=== PATIENT | male | born 1980 | race Caucasian/White ===

== ENCOUNTER 2019-10-09 21:08 | Emergency (ER) | payer MEDICAID ==
[~2019-10-09] VITALS: Ht 182.9 cm; Wt 74.8 kg
[2019-10-09 21:08] VITALS: BP 118/89
== END 2019-10-09 21:45 | disposition home or self-care (01) ==
LOC: ER 21:13
DX: H10.89 Other conjunctivitis (principal); B99.9 Unspecified infectious disease